=== PATIENT | male | born 2000 | race Caucasian/White ===

== ENCOUNTER 2019-04-06 16:31 | Emergency (ER) | payer BC, OTHER ==
[2019-04-06 16:37] VITALS: BP 151/89; PULSE 83; RESP 18; TEMP 98.4
--- NOTE | 2019-04-06 17:27 | ED ---
Skin/Abscess/FB HPI - General Chief complaint: Skin/Abscess/Foreign Body Stated complaint: Nail through his hand- Thursday Time Seen by Provider: 04/06/19 16:43 Source: patient Mode of arrival: ambulatory Limitations: no limitations - History of Present Illness Initial comments: Patient is a 19-year-old male presenting to emergency Department with complaints of possible cellulitis of his left hand x 2 days. Patient states on Thursday he was at work and was lifting a part into the air when he was pinched between a rusted nail and the park. The nail went through the dorsal part of his left hand approximately half an inch. Patient went to urgent care yesterday and received an x-ray which was normal, no foreign body seen. Patient was also given a tetanus vaccine and was started on Keflex. Patient had a follow-up appointment with urgent care today stating he had increase in redness and swelling of his left hand and so he was started on Cipro as well. They suggested he come to the ER for further evaluation. Patient has no pertinent past medical history. Patient denies fever, chills, nausea, vomiting. Patient takes no medications and has no ALLERGIES. Upon arrival to ER, vital signs are stable. - Related Data Home Medications Medication Instructions Recorded Confirmed Ibuprofen [Motrin] 800 mg PO Q6H PRN 04/06/19 04/06/19 Unknown Abx 1 tab PO BID 04/06/19 04/06/19 Unknown Abx 1 tab PO QID 04/06/19 04/06/19 Allergies Allergy/AdvReac Type Severity Reaction Status Date / Time No Known Allergies Allergy Verified 04/06/19 16:36 Review of Systems ROS Statement: Those systems with pertinent positive or pertinent negative responses have been documented in the HPI. ROS Other: All systems not noted in ROS Statement are negative. Past Medical History Past Medical History: No Reported History History of Any Multi-Drug Resistant Organisms: None Reported Past Surgical History: Tonsillectomy Past Psychological History: No Psychological Hx Reported Smoking Status: Current every day smoker Past Alcohol Use History: Occasional Past Drug Use History: None Reported General Exam - General Exam Comments Initial Comments: GENERAL: Well-appearing, well-nourished and in no acute distress. HEAD: Atraumatic, normocephalic. EYES: Pupils equal round and reactive to light, extraocular movements intact, sclera anicteric, conjunctiva are normal. ENT: TMs normal, nares patent, oropharynx clear without exudates. Moist mucous membranes. NECK: Normal range of motion, supple without lymphadenopathy or JVD. LUNGS: Breath sounds clear to auscultation bilaterally and equal. No wheezes rales or rhonchi. HEART: Regular rate and rhythm without murmurs, rubs or gallops. ABDOMEN: Soft, nontender, normoactive bowel sounds. No guarding, no rebound. No masses appreciated. : Deferred EXTREMITIES: Patient has a puncture wound on the dorsal aspect of his left hand just distal to the wrist joint. There is surrounding erythema of the left dorsal aspect of the hand as well as mild swelling. Neurovascular intact. Patient has full range of motion of his left hand/fingers. No clubbing or cyanosis. NEUROLOGICAL: Cranial nerves II through XII grossly intact. Normal speech, normal gait. PSYCH: Normal mood, normal affect. SKIN: Warm, Dry, normal turgor, no rashes. Limitations: no limitations Course Vital Signs 04/06/19 16:33 Temperature 98.4 F Pulse Rate 83 Respiratory 18 Rate Blood Pressure 151/89 O2 Sat by Pulse 98 Oximetry Medical Decision Making - Medical Decision Making Patient is a 19-year-old male presenting with cellulitis of his left hand 2 days. Patient had a rusted nail go into the dorsal aspect of his left hand 2 days ago at work. Patient was seen at urgent care and had a normal x-ray as well as his tetanus updated. Patient was started on Keflex yesterday and during follow-up today was started on Cipro. Patient was sent to the ER for further evaluation. On exam patient has erythema and swelling of the dorsal aspect of left hand along with a single puncture wound. Patient has full range of motion of his hand and fingers. Patient's vital signs are stable today, afebrile. Patient has no pertinent past medical history, and is otherwise a healthy individual. Patient's erythema was outlined on his left hand. Patient will continue with Keflex and Cipro for cellulitis of his left hand. Patient will return to the ER if fever or vomiting develops or the redness is spreading into his left forearm. Patient is stable for discharge at this time and he is in agreement with this plan of care. Return parameters were discussed with patient he verbalizes understanding. Case discussed with Dr. Lilly. Disposition Clinical Impression: Cellulitis of left hand Disposition: HOME SELF-CARE Condition: Stable Instructions (If sedation given, give patient instructions): Cellulitis (ED) Additional Instructions: Please return to the Emergency Department if symptoms worsen or any other concerns. Continue with Keflex and Cipro as prescribed. Use ice and elevation for swelling. Is patient prescribed a controlled substance at d/c from ED?: No Referrals: None,Stated [Primary Care Provider] - 1-2 days
== END 2019-04-06 18:26 | disposition home or self-care (01) ==
LOC: EC 16:31
DX: L03.114 Cellulitis of left upper limb (principal); S61.532A Puncture wound without foreign body of left wrist, initial encounter; F17.200 Nicotine dependence, unspecified, uncomplicated; W45.0XXA Nail entering through skin, initial encounter; Y93.89 Activity, other specified
CPT/HCPCS: 99283

== ENCOUNTER 2021-05-28 14:20 | Emergency (ER) | payer OTHER ==
[2021-05-28 14:32] VITALS: BP 142/88; PULSE 80; RESP 19; TEMP 98.3
[2021-05-28 14:55] LABS: Basophils # (A) 0.1 k/uL (0-0.2); Basophils % (A) 1 %; Eosinophils # (A) 0.2 k/uL (0-0.7); Eosinophils % (A) 3 %; HCT 45.9 % (39.0-53.0); HGB 15.8 gm/dL (13.0-17.5); Lymphocytes # (A) 1.5 k/uL (1.0-4.8); Lymphocytes % (A) 26 %; MCH 32.2 pg (25.0-35.0); MCHC 34.5 g/dL (31.0-37.0); MCV 93.2 fL (80.0-100.0); Mean Platelet Volume 7.9; Monocytes # (A) 0.4 k/uL (0-1.0); Monocytes % (A) 7 %; Neutrophils # (A) 3.4 k/uL (1.3-7.7); Neutrophils % (A) 59 %; Platelet Count 195 k/uL (150-450); RBC 4.92 m/uL (4.30-5.90); RDW 11.9 % (11.5-15.5); WBC 5.8 k/uL (3.8-10.6)
[2021-05-28 15:00] LABS: ALT 28 U/L (4-49); AST 26 U/L (17-59); African American GFR (CKD) >90 (>60 ml/min/1.73 sqM); Albumin 4.3 g/dL (3.5-5.0); Alkaline Phosphatase 84 U/L (38-126); Amylase 58 U/L (30-110); Anion Gap 10 mmol/L; Blood Urea Nitrogen 12 mg/dL (9-20); Calcium 9.9 mg/dL (8.4-10.2); Carbon Dioxide 24 mmol/L (22-30); Chloride 104 mmol/L (98-107); Glucose 92 mg/dL (74-99); Lipase 35 U/L (23-300); Non-African American GFR(CKD) >90 (>60 ml/min/1.73 sqM); Potassium 3.7 mmol/L (3.5-5.1); Sodium 138 mmol/L (137-145); Total Bilirubin 0.9 mg/dL (0.2-1.3); Total Protein 6.9 g/dL (6.3-8.2)
[2021-05-28 17:01] LABS: Appearance,Urine Clear (Clear); Bilirubin,Urine Negative (Negative); Blood,Urine Negative (Negative); Color,Urine Yellow; Glucose,Urine (UA) Negative (Negative); Ketones,Urine Negative (Negative); Leukocyte Esterase,Urine Negative (Negative); Nitrite,Urine Negative (Negative); PH, Urine 5.5 (5.0-8.0); Protein,Urine Negative (Negative); Specific Gravity,Urine 1.017 (1.001-1.035); Urobilinogen,Urine <2.0 mg/dL (<2.0)
[2021-05-28] MEDS ORDERED: ONDANSETRON 4 MG ODT STARTER PACK 2 TAB BTL PO STA (17:04)
--- NOTE | 2021-05-28 17:09 | ED ---
General Adult HPI - General Chief complaint: Abdominal Pain Stated complaint: Abd Pain,diarrhea,Vomiting Time Seen by Provider: 05/28/21 16:25 Source: patient, RN notes reviewed Mode of arrival: ambulatory Limitations: no limitations - History of Present Illness Initial comments: Patient is a 21-year-old male presenting to emergency Department with complaints of nausea, vomiting, diarrhea and lower abdominal cramping that started yesterday. Patient states he has been having diarrhea about 20 times today. He denies any blood in the stool. He states his abdominal pain is all lower abdomen is crampy in nature. Denies any fevers or chills, no history of abdominal surgeries. Denies any chest pain or shortness of breath, no cough or cold-like symptoms. Patient has no further complaints. Upon arrival to the ER, his vitals are stable. - Related Data Home Medications Medication Instructions Recorded Confirmed Ibuprofen [Motrin] 800 mg PO Q6H PRN 04/06/19 04/06/19 Unknown Abx 1 tab PO BID 04/06/19 04/06/19 Unknown Abx 1 tab PO QID 04/06/19 04/06/19 Allergies Allergy/AdvReac Type Severity Reaction Status Date / Time No Known Allergies Allergy Verified 04/06/19 16:36 Review of Systems ROS Statement: Those systems with pertinent positive or pertinent negative responses have been documented in the HPI. ROS Other: All systems not noted in ROS Statement are negative. Past Medical History Past Medical History: No Reported History History of Any Multi-Drug Resistant Organisms: None Reported Past Surgical History: Tonsillectomy Past Psychological History: No Psychological Hx Reported Smoking Status: Never smoker Past Alcohol Use History: Occasional Past Drug Use History: None Reported General Exam - General Exam Comments Initial Comments: GENERAL: Patient is well-developed and well-nourished. Patient is nontoxic and in no acute distress. HEAD: Atraumatic, normocephalic. EYES: Pupils equal round and reactive to light, extraocular movements intact, sclera anicteric, conjunctiva are normal. Eyelids were unremarkable. ENT: Moist mucous membranes. NECK: Normal range of motion, supple without lymphadenopathy or JVD. LUNGS: Unlabored respirations. Breath sounds clear to auscultation bilaterally and equal. No wheezes rales or rhonchi. HEART: Regular rate and rhythm without murmurs, rubs or gallops. ABDOMEN: Soft, nontender, normoactive bowel sounds. No guarding, no rebound. No masses appreciated. MUSCULOSKELETAL: Normal extremities with adequate strength and normal range of motion, no pitting or edema. No clubbing or cyanosis. NEUROLOGICAL: Patient is alert and oriented x 3. SKIN: Warm, Dry, normal turgor, no rashes or lesions noted. Limitations: no limitations Course Vital Signs 05/28/21 14:30 Temperature 98.3 F Pulse Rate 80 Respiratory 19 Rate Blood Pressure 142/88 O2 Sat by Pulse 100 Oximetry Medical Decision Making - Medical Decision Making patient is a 21-year-old male here for nausea, vomiting, diarrhea and lower abdominal cramping since yesterday. He is afebrile, his vitals are normal. Patient's lab work is unremarkable, urine is normal, rapid covid Is negative. Discussed with patient this is most likely viral in nature. I will give him a Zofran starter pack for any additional nausea. I recommended taking Imodium for the diarrhea. Continue to increase his fluid intake. He is stable for discharge. Return parameters were discussed with him and he verbalized understanding. - Lab Data Result diagrams: 05/28/21 14:40 05/28/21 14:40 Lab Results 05/28/21 05/28/21 05/28/21 Range/Units 14:35 14:40 14:40 WBC 5.8 (3.8-10.6) k/uL RBC 4.92 (4.30-5.90) m/uL Hgb 15.8 (13.0-17.5) gm/dL Hct 45.9 (39.0-53.0) % MCV 93.2 (80.0-100.0) fL MCH 32.2 (25.0-35.0) pg MCHC 34.5 (31.0-37.0) g/dL RDW 11.9 (11.5-15.5) % Plt Count 195 (150-450) k/uL MPV 7.9 Neutrophils % 59 % Lymphocytes % 26 % Monocytes % 7 % Eosinophils % 3 % Basophils % 1 % Neutrophils # 3.4 (1.3-7.7) k/uL Lymphocytes # 1.5 (1.0-4.8) k/uL Monocytes # 0.4 (0-1.0) k/uL Eosinophils # 0.2 (0-0.7) k/uL Basophils # 0.1 (0-0.2) k/uL Sodium 138 (137-145) mmol/L Potassium 3.7 (3.5-5.1) mmol/L Chloride 104 (98-107) mmol/L Carbon Dioxide 24 (22-30) mmol/L Anion Gap 10 mmol/L BUN 12 (9-20) mg/dL Creatinine 0.90 (0.66-1.25) mg/dL Est GFR (CKD-EPI)AfAm >90 (>60 ml/min/1.73 sqM) Est GFR (CKD-EPI)NonAf >90 (>60 ml/min/1.73 sqM) Glucose 92 (74-99) mg/dL Calcium 9.9 (8.4-10.2) mg/dL Total Bilirubin 0.9 (0.2-1.3) mg/dL AST 26 (17-59) U/L ALT 28 (4-49) U/L Alkaline Phosphatase 84 (38-126) U/L Total Protein 6.9 (6.3-8.2) g/dL Albumin 4.3 (3.5-5.0) g/dL Amylase 58 (30-110) U/L Lipase 35 (23-300) U/L Urine Color Urine Appearance (Clear) Urine pH (5.0-8.0) Ur Specific [place] (1.001-1.035) Urine Protein (Negative) Urine Glucose (UA) (Negative) Urine Ketones (Negative) Urine Blood (Negative) Urine Nitrite (Negative) Urine Bilirubin (Negative) Urine Urobilinogen (<2.0) mg/dL Ur Leukocyte Esterase (Negative) Coronavirus (PCR) Not Detected (Not Detectd) 05/28/21 Range/Units 16:46 WBC (3.8-10.6) k/uL RBC (4.30-5.90) m/uL Hgb (13.0-17.5) gm/dL Hct (39.0-53.0) % MCV (80.0-100.0) fL MCH (25.0-35.0) pg MCHC (31.0-37.0) g/dL RDW (11.5-15.5) % Plt Count (150-450) k/uL MPV Neutrophils % % Lymphocytes % % Monocytes % % Eosinophils % % Basophils % % Neutrophils # (1.3-7.7) k/uL Lymphocytes # (1.0-4.8) k/uL Monocytes # (0-1.0) k/uL Eosinophils # (0-0.7) k/uL Basophils # (0-0.2) k/uL Sodium (137-145) mmol/L Potassium (3.5-5.1) mmol/L Chloride (98-107) mmol/L Carbon Dioxide (22-30) mmol/L Anion Gap mmol/L BUN (9-20) mg/dL Creatinine (0.66-1.25) mg/dL Est GFR (CKD-EPI)AfAm (>60 ml/min/1.73 sqM) Est GFR (CKD-EPI)NonAf (>60 ml/min/1.73 sqM) Glucose (74-99) mg/dL Calcium (8.4-10.2) mg/dL Total Bilirubin (0.2-1.3) mg/dL AST (17-59) U/L ALT (4-49) U/L Alkaline Phosphatase (38-126) U/L Total Protein (6.3-8.2) g/dL Albumin (3.5-5.0) g/dL Amylase (30-110) U/L Lipase (23-300) U/L Urine Color Yellow Urine Appearance Clear (Clear) Urine pH 5.5 (5.0-8.0) Ur Specific [place] 1.017 (1.001-1.035) Urine Protein Negative (Negative) Urine Glucose (UA) Negative (Negative) Urine Ketones Negative (Negative) Urine Blood Negative (Negative) Urine Nitrite Negative (Negative) Urine Bilirubin Negative (Negative) Urine Urobilinogen <2.0 (<2.0) mg/dL Ur Leukocyte Esterase Negative (Negative) Coronavirus (PCR) (Not Detectd) Disposition Clinical Impression: Nausea vomiting and diarrhea Disposition: HOME SELF-CARE Condition: Stable Instructions (If sedation given, give patient instructions): Acute Diarrhea (ED) Additional Instructions: Please return to the Emergency Department if symptoms worsen or any other concerns. May take Zofran every 8 hours for any additional nausea or vomiting. I recommend Imodium for the diarrhea. Continue to increase your fluid intake. Follow-up with your primary care as needed. Is patient prescribed a controlled substance at d/c from ED?: No Referrals: None,Stated [Primary Care Provider] - 1-2 days Time of Disposition: 17:09
== END 2021-05-28 17:38 | disposition home or self-care (01) ==
LOC: EC 14:20
DX: R11.2 Nausea with vomiting, unspecified (principal); R19.7 Diarrhea, unspecified; Z20.822 Contact with and (suspected) exposure to COVID-19; Z79.1 Long term (current) use of non-steroidal anti-inflammatories (NSAID)
CPT/HCPCS: 36415; 80053; 82150; 83690; 85025; 81003; 87635; 99284; S0119

== ENCOUNTER → 2022-05-30 | Outpatient (CLI) | payer BC ==
--- NOTE | 2022-05-30 08:02 | US ---
EXAMINATION TYPE: US abdomen limited DATE OF EXAM: 05/30/2022 COMPARISON: NONE CLINICAL HISTORY: R10.13 EPIGASTRIC PAIN. Epigastric pain for 1 year TECHNIQUE: Multiple sonographic images of the right upper quadrant are obtained. FINDINGS: EXAM MEASUREMENTS: Liver Length: 16.1 cm Gallbladder Wall: 0.2 cm CBD: 0.4 cm Right Kidney: 11.6 x 6.3 x 5.3 cm [employer]PRENTICE NOTES:technical limitations due to large amount of overlying bowel content Pancreas: Obscured by bowel gas Liver: visualized portions appear wnl Gallbladder: no evidence of stones Evidence for sonographic Schultz's sign: no CBD: limited evaluation Right Kidney: no evidence of hydronephrosis IMPRESSION: No evidence for acute abdominal process.
== END | disposition home or self-care (01) ==
LOC: RADUSWWP 07:03
PROVIDERS: ATTEND Family Medicine
DX: R10.13 Epigastric pain (principal)
CPT/HCPCS: 76705

== ENCOUNTER 2022-06-26 05:46 | Emergency (ER) | payer BC ==
[2022-06-26] MEDS ORDERED: IBUPROFEN 600 MG TAB PO STA (06:13)
[2022-06-26] MEDS ORDERED: ACETAMINOPHEN TAB 325 MG TAB PO STA (06:13)
--- NOTE | 2022-06-26 06:17 | ED ---
URI HPI - General Chief Complaint: Upper Respiratory Infection Stated Complaint: Fever, cough Time Seen by Provider: 06/26/22 06:05 Source: patient, RN notes reviewed, old records reviewed Mode of arrival: ambulatory Limitations: no limitations - History of Present Illness Initial Comments: Nontoxic appearing 22-year-old male presents to the emergency room with fever, cough, and congestion for the past 2 days. Patient states been exposed to other people at work have been sick. States gets pneumonia every year. Does vape. ONEIL Complaint: fever, cough, nasal congestion -: days(s) (2) Context: sick contacts Associated Symptoms: fever, nasal congestion, cough Treatments Prior to Arrival: none - Related Data Home Medications Medication Instructions Recorded Confirmed Calcium Carbonate [Tums] 500 mg PO QID PRN 05/28/21 05/28/21 Previous Rx's Medication Instructions Recorded Oseltamivir [Tamiflu] 75 mg PO Q12HR #10 cap 06/26/22 Allergies Allergy/AdvReac Type Severity Reaction Status Date / Time No Known Allergies Allergy Verified 06/26/22 05:49 Review of Systems ROS Statement: Those systems with pertinent positive or pertinent negative responses have been documented in the HPI. ROS Other: All systems not noted in ROS Statement are negative. Past Medical History Past Medical History: No Reported History History of Any Multi-Drug Resistant Organisms: None Reported Past Surgical History: Tonsillectomy Past Psychological History: No Psychological Hx Reported Smoking Status: Never smoker Past Alcohol Use History: Occasional Past Drug Use History: None Reported General Exam Limitations: no limitations General appearance: alert, in no apparent distress Head exam: Present: atraumatic Eye exam: Present: normal appearance. Absent: scleral icterus, conjunctival injection, periorbital swelling, periorbital tenderness ENT exam: Present: mucous membranes moist Neck exam: Present: full ROM. Absent: tenderness, meningismus Respiratory exam: Present: normal lung sounds bilaterally. Absent: respiratory distress, wheezes, rales, rhonchi, stridor, chest wall tenderness, accessory muscle use Cardiovascular Exam: Present: regular rate Extremities exam: Present: normal capillary refill Neurological exam: Present: alert, oriented X3, normal gait Psychiatric exam: Present: normal affect, normal mood Skin exam: Present: warm, normal color. Absent: cyanosis, diaphoretic, pallor Course Vital Signs 12/22/22 12/22/22 05:49 07:02 Temperature 99.3 F 99.5 F Pulse Rate 100 Respiratory 16 Rate Blood Pressure 119/72 O2 Sat by Pulse 97 Oximetry Medical Decision Making - Medical Decision Making Chest x-ray interpreted by me shows no evidence of consolidation, trachea is midline, cardiac silhouette normal size. Radiologist interpretation of chest x-ray is minimal peribronchial cuffing consistent with bronchitis or asthma. No infiltrate or chris pneumonia. Vital signs are stable, lung sounds are clear, oxygen saturation 97% on room air. Patient is influenza A positive. He was given Tylenol and Motrin for his fever and discomfort. He was written a prescription for Tamiflu and directed to increase his fluid intake and continue Tylenol Motrin at home. I did discuss with him the importance of stopping smoking. I explained vaping will lengthen his illness and cause lung damage and health complications in the future. Patient is agreeable to this plan of care. Case discussed with Dr. Smith. Was pt. sent in by a medical professional or institution? No Did you speak to anyone other than the patient for history? @No Did you review nursing and triage notes? @yes Were old charts reviewed? @Yes Differential Diagnosis? @Influenza, pneumonia, coronavirus, pulmonary embolism, sinusitis EKG interpreted by me (3pts min.)? @Not applicable X-rays interpreted by me (1pt min.)? @Yes CT interpreted by me (1pt min.)? @Not applicable U/S interpreted by me (1pt. min.)? @Not applicable What testing was considered but not performed? (CT, X-rays, U/S, labs)? Why? @None What meds were considered but not given? Why? @Antibiotics were considered if chest x-ray revealed pneumonia , however influenza A+ therefore, antibiotics not necessary Did you discuss the management of the patient with other professionals? @No Did you reconcile home meds? @None Was smoking cessation discussed for >3mins.? @Yes Was critical care preformed (if so, how long)? @No Were there social determinants of health that impacted care today? How? (Home lessness, low income, unemployed, alcoholism, drug addiction, transportation, low edu. Level, literacy, decrease access to med. care, custodial, rehab)? @Not applicable Was there de-escalation of care discussed even if they declined? (Discuss DNR or withdrawal of care, Hospice)? @Not applicable What co-morbidities impacted this encounter? (DM, HTN, Smoking, COPD, CAD, Cancer, CVA, Hep., AIDS, mental health diagnosis, sleep apnea, morbid obesity)? @None Was patient admitted / discharged? @Discharged Undiagnosed new problem with uncertain prognosis? @ [none] Drug Therapy requiring intensive monitoring for toxicity (Heparin, Nitro, Insulin, Cardizem)? @no Were any procedures done? @No Diagnosis/symptom? @Influenza a Acute, or Chronic, or Acute on Chronic? @Acute Uncomplicated (without systemic symptoms) or Complicated (systemic symptoms)? @Uncomplicated Side effects of treatment? @ [none] Exacerbation, Progression, or Severe Exacerbation] @ [no] Poses a threat to life or bodily function? @ [no] - Lab Data Lab Results 06/26/22 Range/Units 06:29 Influenza Type A (PCR) Detected A (Not Detectd) Influenza Type B (PCR) Not Detected (Not Detectd) RSV (PCR) Not Detected (Not Detectd) SARS-CoV-2 (PCR) Not Detected (Not Detectd) Disposition Clinical Impression: Influenza Disposition: HOME SELF-CARE Condition: Good Instructions (If sedation given, give patient instructions): Influenza (ED) Additional Instructions: Increase your fluid intake. Avoid immunocompromised people including the very young and very old. Do not go into public while you have symptoms and you must be 24 hours without a fever and to be sure that you are not contagious. Take Tamiflu as prescribed to help shorten the duration of your illness. Tylenol and or Motrin as needed for any fevers, pain or discomfort. Please stop vaping as this will increase risk of lung disease and lengthen recovery time. Return to the emergency room with any new or concerning symptoms. Prescriptions: Oseltamivir [Tamiflu] 75 mg PO Q12HR #10 cap Is patient prescribed a controlled substance at d/c from ED?: No Referrals: Anupam Dumont MD [Primary Care Provider] - 1-2 days Time of Disposition: 08:02
--- NOTE | 2022-06-26 07:37 | XR ---
EXAMINATION TYPE: XR chest 2V DATE OF EXAM: 06/26/2022 COMPARISON: None HISTORY: 22-year-old male with cough and fever TECHNIQUE: PA and lateral views FINDINGS: The cardiomediastinal silhouette, aorta, and pulmonary vasculature are within normal limits. There is minimal peribronchial cuffing. Otherwise, lungs and pleural spaces are clear. IMPRESSION: Minimal peribronchial cuffing which may be seen with bronchitis or asthma. No focal infiltrate to sug gest a chris pneumonia.
[2022-06-26 08:12] VITALS: BP 112/63; PULSE 94; RESP 18; TEMP 99.1
== END 2022-06-26 08:20 | disposition home or self-care (01) ==
LOC: EC 05:46
DX: J10.1 Influenza due to other identified influenza virus with other respiratory manifestations (principal); Z20.822 Contact with and (suspected) exposure to COVID-19
CPT/HCPCS: 71046; 87636; 99284

== ENCOUNTER → 2022-09-24 | Outpatient (CLI) | payer BC ==
--- NOTE | 2022-09-24 17:02 | XR ---
EXAMINATION TYPE: XR pelvis AP view DATE OF EXAM: 09/24/2022 4:45 PM INDICATION: Patient age:Male; 22 years old; Reason for study: Z18.10; COMPARISON: None TECHNIQUE: The pelvis was examined in a single projection. FINDINGS: There is metallic density projecting over the perineum/parietal region. There is no evidenc e of fracture or dislocation. There is no soft tissue abnormality. No abnormal calcifications are pr esent. IMPRESSION: Radiopaque foreign body within the area of the scrotum.
== END | disposition home or self-care (01) ==
LOC: RADMRIMAIN 16:32
PROVIDERS: ATTEND Physician Assistant Medical
DX: G43.909 Migraine, unspecified, not intractable, without status migrainosus (principal); Z18.10 Retained metal fragments, unspecified
CPT/HCPCS: 72170

== ENCOUNTER → 2024-01-13 | Outpatient (CLI) | payer BC ==
--- NOTE | 2024-01-13 19:04 | CT ---
EXAMINATION TYPE: CT angio head CT DLP: 1821 mGycm, Automated exposure control for dose reduction was used. DATE OF EXAM: 01/13/2024 6:54 PM COMPARISON: 11/02/2009.. CLINICAL INDICATION:Male, 23 years old with history of Z82.49 FAMILY HX OF ISCHEM HEART DIS; PHH, fam joana hx aneurysms TECHNIQUE: CT angio head Axially acquired helical CT angiogram was obtained. Axial images are supplem ented with 3D reconstructions which were post-processed at an independent workstation. NASCET criteri a used. Contrast used:65cc mL of Isovue 370 with IV Contrast, none Oral contrast used: none FINDINGS: Vertebral arteries: The vertebral arteries are patent. Vertebral artery dominance: Codominant Basilar artery: The basilar artery is intact. The basilar artery bifurcation is normal. Internal Carotid arteries: The cervical, petrous, cavernous and supraclinoid segments are normal. DORA: Patent with no evidence of aneurysm. Atrophic left A1 segment. ACOM: Present without evidence of aneurysm. MCA: Patent with no evidence of aneurysm. SHOT HOLE DRILLER: Patent with no evidence of aneurysm. PCOM: Hypoplastic bilaterally. Dural sinuses: Patent. IMPRESSION: No evidence of high-grade stenosis or intracranial aneurysm.
== END | disposition home or self-care (01) ==
LOC: RADCTMAIN 18:07
PROVIDERS: ATTEND Family Medicine
DX: G44.209 Tension-type headache, unspecified, not intractable (principal); Z82.49 Family history of ischemic heart disease and other diseases of the circulatory system
CPT/HCPCS: 70496; Q9967

== ENCOUNTER 2024-05-05 17:39 | Emergency (ER) | payer BC ==
--- NOTE | 2024-05-05 18:38 | US ---
EXAMINATION TYPE: US scrotum with doppler. DATE OF EXAM: 05/05/2024 COMPARISON: NONE CLINICAL INDICATION: Male, 24 years old with history of r/o torsion; Patient states left sided pain a nd swelling after trauma. Hx vasectomy TECHNIQUE: Grayscale, color Doppler and spectral Doppler imaging of the scrotum. FINDINGS: EXAM MEASUREMENTS: TESTICLES: Right Testicle: 5.2 x 2.8 x 4.0 cm Left Testicle: 5.7 x 3.1 x 4.0 cm EPIDIDYMIS HEAD: Right Epididymis: 2.2 x 1.2 x 1.9 cm Left Epididymis: 2.0 x 1.6 x 1.4 cm slightly heterogeneous. ? increased vascularity Doppler performed to assess for testicular vascularity; good bilateral color flow and waveforms are s een. There is no evidence of testicular torsion. Presence of hydroceles: Small bilateral Presence of varicoceles: ? left side IMPRESSION: 1. There may be slight increased vascularity of the left epididymis. Correlate for left epididymitis. [facility], Workstation: [facility], 05/05/2024 6:36 PM
--- NOTE | 2024-05-05 19:08 | ED ---
General Adult HPI - General Chief complaint: Urogenital Stated complaint: pain in L testicle Time Seen by Provider: 05/05/24 18:00 Source: patient, RN notes reviewed, old records reviewed Mode of arrival: ambulatory Limitations: no limitations - History of Present Illness Initial comments: This is a 24-year-old male who presents to the emergency department complaining of left testicular pain after he stretched his legs trying to do a jump of about 6 feet at work. Patient states that was 2 days ago and ever since has become much more swollen and very tender to touch. Patient denies any direct trauma or blunt trauma. Patient states he is sexually active but only with his . Patient denies any dysuria hematuria. - Related Data Home Medications Medication Instructions Recorded Confirmed Calcium Carbonate [Tums] 500 mg PO QID PRN 05/28/21 05/28/21 Previous Rx's Medication Instructions Recorded Oseltamivir [Tamiflu] 75 mg PO Q12HR #10 cap 06/26/22 Allergies Allergy/AdvReac Type Severity Reaction Status Date / Time No Known Allergies Allergy Verified 05/05/24 17:50 Review of Systems ROS Statement: Those systems with pertinent positive or pertinent negative responses have been documented in the HPI. ROS Other: All systems not noted in ROS Statement are negative. Past Medical History Past Medical History: Asthma History of Any Multi-Drug Resistant Organisms: None Reported Past Surgical History: Tonsillectomy Additional Past Surgical History / Comment(s): vasectomy Past Psychological History: No Psychological Hx Reported Smoking Status: Current every day smoker Past Alcohol Use History: Abuse Past Drug Use History: None Reported General Exam - General Exam Comments Initial Comments: GENERAL: Patient is well-developed and well-nourished. Patient is nontoxic and well- hydrated and is in mild distress. ENT: Neck is soft and supple. No significant lymphadenopathy is noted. Oropharynx is clear. Moist mucous membranes. Neck has full range of motion without eliciting any pain. EYES: The sclera were anicteric and conjunctiva were pink and moist. Extraocular m ovements were intact and pupils were equal round and reactive to light. Eyelids were unremarkable. GENITALIA: Patient's left testicle appears to be swollen there does appear to be a fullness in the epididymis. Patient's testicle and epididymis are extremely tender. There is no inguinal hernia that I can palpate SKIN: Skin is clear with no lesions or rashes and otherwise unremarkable. NEUROLOGIC: Patient is alert and oriented x3. Cranial nerves II through XII are grossly intact. Motor and sensory are also intact. Normal speech, volume and content. Symmetrical smile. MUSCULOSKELETAL: Normal extremities with adequate strength and full range of motion. PSYCHIATRIC: Normal psychiatric evaluation. Limitations: no limitations Course Vital Signs 05/05/24 17:50 Temperature 98.2 F Pulse Rate 90 Respiratory 20 Rate Blood Pressure 134/87 O2 Sat by Pulse 99 Oximetry Medical Decision Making - Medical Decision Making Was pt. sent in by a medical professional or institution (, [employer], [employer]DER, urgent care, hospital, or skilled nursing...) When possible be specific @ -No Did you speak to anyone other than the patient for history (EMS, parent, family, police, friend...)? What history was obtained from this source @ -No Did you review nursing and triage notes (agree or disagree)? Why? @ -I reviewed and agree with nursing and triage notes Were old charts reviewed (outside hosp., previous admission, EMS record, old EKG, old radiological studies, urgent care reports/EKG's, skilled nursing records)? Report findings @ -No old charts were reviewed Differential Diagnosis? @ -Testicular torsion, epididymitis, groin strain, kidney stone this is not an all-inclusive list EKG interpreted by me (3pts min.). @ -As above X-rays interpreted by me (1pt min.). @ -None done CT interpreted by me (1pt min.). @ -None done U/S interpreted by me (1pt. min.). @ -Ultrasound showed little increased vascularity to the epididymis possibly epididymitis What testing was considered but not performed or refused? (CT, X-rays, U/S, labs)? Why? @ -None What meds were considered but not given or refused? Why? @ -None Did you discuss the management of the patient with other professionals (professionals i.e. ARAVIND Bonilla, [employer]IATURE SET BU[employer]DER, lab, RT, psych nurse, web content & social media manager, turning lathe tender, teacher, chief supply chain officer, home health care case manager)? Give summary @ -I spoke with Dr. Franco and he felt possibly patient injured a blood vessel and had a little bleeding internally when he stretched out to jump and wants the patient to follow-up with him if symptoms do not improve Was smoking cessation discussed for >3mins.? @ -No Was critical care preformed (if so, how long)? @ -No Were there social determinants of health that impacted care today? How? (Homelessness, low income, unemployed, alcoholism, drug addiction, transportation, low edu. Level, literacy, decrease access to med. care, half-way, rehab)? @ -No Was there de-escalation of care discussed even if they declined (Discuss DNR or withdrawal of care, Hospice)? DNR status @ -No What co-morbidities impacted this encounter? (DM, HTN, Smoking, COPD, CAD, Cancer, CVA, ARF, Chemo, Hep., AIDS, mental health diagnosis, sleep apnea, morbid obesity)? @ -None Was patient admitted / discharged? Hospital course, mention meds given and route, prescriptions, significant lab abnormalities, going to OR and other pertinent info. @ -Ultrasound showed no signs that would indicate a reason for pain secondary to trauma. Undiagnosed new problem with uncertain prognosis? @ -No Drug Therapy requiring intensive monitoring for toxicity (Heparin, Nitro, Insulin, Cardizem)? @ -No Were any procedures done? @ -No Diagnosis/symptom? @ -Epididymitis noninfectious Acute, or Chronic, or Acute on Chronic? @ -Default Uncomplicated (without systemic symptoms) or Complicated (systemic symptoms)? @ -Complicated Side effects of treatment? @ -No Exacerbation, Progression, or Severe Exacerbation? @ -No Poses a threat to life or bodily function? How? (Chest pain, [place], CA, pneumonia, PE, COPD, DKA, ARF, appy, cholecystitis, CVA, Diverticulitis, Homicidal, Suicidal, threat to staff... and all critical care pts) @ -No - Lab Data Lab Results 05/05/24 Range/Units 18:59 Urine Color Colorless Urine Appearance Clear (Clear) Urine pH 7.5 (5.0-8.0) Ur Specific Downs 1.017 (1.001-1.035) Urine Protein Negative (Negative) Urine Glucose (UA) Negative (Negative) Urine Ketones Negative (Negative) Urine Blood Negative (Negative) Urine Nitrite Negative (Negative) Urine Bilirubin Negative (Negative) Urine Urobilinogen 2.0 (<2.0) mg/dL Ur Leukocyte Esterase Negative (Negative) Disposition Clinical Impression: Testicular pain, left Disposition: HOME SELF-CARE Condition: Good Instructions (If sedation given, give patient instructions): Testicle Pain (ED), Varicocele (ED) Additional Instructions: Patient should take Motrin and Tylenol as needed for pain patient should follow- up with Dr. Franco if symptoms do not improve or resolve Is patient prescribed a controlled substance at d/c from ED?: No Referrals: Wally Franco MD [STAFF PHYSICIAN] - 1-2 days Time of Disposition: 20:44
[2024-05-05 20:27] LABS: Appearance,Urine Clear (Clear); Bilirubin,Urine Negative (Negative); Blood,Urine Negative (Negative); Color,Urine Colorless; Glucose,Urine (UA) Negative (Negative); Ketones,Urine Negative (Negative); Leukocyte Esterase,Urine Negative (Negative); Nitrite,Urine Negative (Negative); PH, Urine 7.5 (5.0-8.0); Protein,Urine Negative (Negative); Specific Gravity,Urine 1.017 (1.001-1.035)
[2024-05-05 21:08] VITALS: BP 132/82; PULSE 88; RESP 19; TEMP 98.1
== END 2024-05-05 21:08 | disposition home or self-care (01) ==
LOC: EC 17:39
DX: N50.812 Left testicular pain (principal); N45.1 Epididymitis; F17.200 Nicotine dependence, unspecified, uncomplicated; Z90.89 Acquired absence of other organs
CPT/HCPCS: 76870; 81003; 93975; 99283